=== PATIENT | female | born 2000 | race Caucasian/White ===

== ENCOUNTER 2024-09-02 19:41 | Inpatient (IN) ==
[2024-09-02 20:40] LABS: Basophils # (auto) 0.04 K/uL (0.00-0.20); Basophils % (auto) 0.2 %; Eosinophils # (auto) 0.02 K/uL (0.00-0.50); Eosinophils % (auto) 0.1 %; Hematocrit (blood only) 43.7 % (37.0-47.0); Hemoglobin 15.3 g/dl (12.0-16.0); Immature Granulocytes # (auto) 0.05 K/uL (0.01-0.20); Immature Granulocytes % (auto) 0.3 %; Lymphocytes # (auto) 1.95 K/uL (1.20-3.40); Monocytes # (auto) 1.01 K/uL (0.11-0.59); Monocytes % (auto) 6.2 %; Neutrophils # (auto) 13.23 K/uL (1.40-6.50); Neutrophils % (auto) 81.2 %; Platelet Count 195 K/uL (130-400); RDW Coefficient of Variation 12.2 % (11.5-14.5); RDW Standard Deviation 45.1 fL (36.4-46.3); Red Blood Count 4.37 M/uL (4.20-5.40)
[2024-09-02 20:49] LABS: Acetaminophen 5 ug/ml (10-30); Salicylate < 3.0 mg/dl (3.0-30)
[2024-09-02 20:50] LABS: Albumin Globulin Ratio 1.4 (0.9-2); Albumin Level 4.2 gm/dl (3.4-5.0); BUN Creatinine Ratio 10.8 (10-20); Bilirubin,Total 0.4 mg/dl (0.2-1.0); Calcium 9.2 mg/dl (8.6-10.3); Creatinine Clr Calc Pharmacy 103.3 ml/min; Globulin 2.9 gm/dl (2.5-4.0); Potassium 3.7 mmol/L (3.5-5.1); Total Protein 7.1 gm/dl (6.0-8.3)
--- NOTE | 2024-09-02 20:58 | Emergency Department Note ---
Impression & Plan Suicidal ideation, Depression ED Provider Note HISTORY OF PRESENT ILLNESS: Patient is a 24-year-old female presenting with depression and suicidal ideation. Patient reports her depression has been worsening over the last few weeks. States that she is "does not want to live anymore." She does not have a plan to kill herself, as she states "my son and I need to live for him." She reports that "all I wanted do is sleep." She reports lack of energy to do anything and anhedonia. With an outpatient therapist, but the therapist is unable to prescribe her any medications. She reports she has not been on any antidepressant or psychiatric medications for a number of years. She reports that "I need help." Denies any homicidal ideation. Denies any auditory visual hallucinations. Denies any specific triggers over the last few weeks to make her depression worse. Reports that "I have just reached my limit and I need help." Patient denies ever having an inpatient psychiatric admission before. ROS: as above PHYSICAL EXAM: Constitutional: Patient appears in no acute distress. HENT: Head: Normocephalic and atraumatic. Eyes: EOMI, PERRL Mouth/Throat: Mucous membranes moist. Neck: Trachea midline. Neck supple. Cardiovascular: RRR, No murmurs, rubs or gallops. Intact distal pulses. Pulmonary/Chest: No respiratory distress. Breath sounds clear and equal bilaterally. No wheezes or rales. Abdominal: Abdomen soft, no tenderness, rebound or guarding. Musculoskeletal: No edema, tenderness or deformity noted. Skin: Warm and dry. No rash, erythema, pallor or cyanosis Psychiatric: Tearful Neurological: Alert and keenly responsive. CN II-XII grossly intact, moving all extremities equally and fully. MDM: - Vitals signs showed tachycardia - History obtained via patient. History as above. - Chronic conditions affecting care: bipolar disorder; depression - Differential diagnoses include, but are not limited to: depression; UTI; alcohol intoxication; drug intoxication - External medical records reviewed. - Laboratory workup interpreted by myself showed leukocytosis (WBC 16.30); normal electrolytes; slightly elevated glucose (122); normal TSH; negative alcohol/acetaminophen/salicylate levels - COVID negative - UA negative for infection - Patient medically cleared. Patient seen in conjunction with behavioral health protective services case worker. She is a voluntary 201 admission for an inpatient psychiatric facility. Bed search in process with referrals being sent. - Prior to disposition, care of patient was checked out to Dr. Longoria following a discussion of the patient's course. ASSESSMENT AND PLAN: Diagnosis: suicidal ideation; depression Past Med/Surg History Problem List (Updated 09/02/24 @ 22:15 by Katerina Dubon MD) Depression (Acute) Suicidal ideation (Acute) Social History (System 02/03/20 @ 11:56 by Lis Centeno) Smoking Status: Current every day smoker Tobacco Type: Cigarettes Preferred Language: Icelandic Feels Safe at Home: Yes Gender Identity: Female Allergies Allergies Allergy/AdvReac Type Severity Reaction Status Date / Time cranberry Allergy Severe Hives Unverified 03/08/20 20:55 latex Allergy Rash Unverified 03/08/20 20:55 nickel Allergy Swelling Unverified 03/08/20 20:55 of Lip/Tongue/Throat Home Meds Home Medications Medication Instructions Recorded Confirmed PNV 153-FA 400 mcg-om3 35 mg-dha 2 tab PO DAILY 03/08/20 03/08/20 25 mg-epa 5 mg-fish oil chew tablet ( Gummies) Results & Data (ED) Vital Signs Vital Signs - 24 hr 09/02/24 19:45 09/02/24 22:00 Temperature 36.5 C Temperature Source Temporal Artery Scan Pulse Rate 98 H Pulse Rate [Finger] 88 Pulse Rhythm Regular Pulse Strength Normal Respiratory Rate 17 16 Respiratory Effort / Characteristics Non-Labored Spontaneous Non-Labored Spontaneous Respiratory Depth Normal Normal Respiratory Pattern Regular Regular Blood Pressure 122/81 Blood Pressure [Left Arm] 111/76 Blood Pressure Mean 94 Blood Pressure Mean [Left Arm] 87 Blood Pressure Position Sitting Pulse Oximetry 99 97 Oxygen Delivery Method Room Air Room Air Sepsis Recent Fever Within 48 Hours No Sepsis New/Unexplained Change in Mental Status N/A Sepsis Action Taken by Nursing No Action Required Laboratory Data 09/02/24 20:14 09/02/24 20:14 Lab Results 09/02/24 09/02/24 09/02/24 Range/Units 20:10 20:14 20:15 WBC 16.30 H (4.8-10.8) K/ul RBC 4.37 (4.20-5.40) M/uL Hgb 15.3 (12.0-16.0) g/dl Hct 43.7 (37.0-47.0) % MCV 100.0 (80.0-100.0) fL MCH 35.0 H (25.0-34.0) pg MCHC 35.0 (32.0-36.0) g/dL RDW Std Deviation 45.1 (36.4-46.3) fL RDW Coeff of Maria Ines 12.2 (11.5-14.5) % Plt Count 195 (130-400) K/uL MPV 11.0 (9.4-12.4) fL Immature Gran % (Auto) 0.3 % Neut % (Auto) 81.2 % Lymph % (Auto) 12.0 % Scurry % (Auto) 6.2 % Eos % (Auto) 0.1 % Baso % (Auto) 0.2 % Neut # (Auto) 13.23 H (1.40-6.50) K/uL Lymph # (Auto) 1.95 (1.20-3.40) K/uL Scurry # (Auto) 1.01 H (0.11-0.59) K/uL Eos # (Auto) 0.02 (0.00-0.50) K/uL Baso # (Auto) 0.04 (0.00-0.20) K/uL Immature Gran # (Auto) 0.05 (0.01-0.20) K/uL Sodium 138 (136-145) mmol/L Potassium 3.7 (3.5-5.1) mmol/L Chloride 104 (98-107) mmol/L Carbon Dioxide 28 (21-32) mmol/L Anion Gap 6 (3-11) BUN 9 (6-23) mg/dl Creatinine 0.83 (0.6-1.2) mg/dl Est Cr Clr Drug Dosing 103.3 ml/min eGFR 99.65 BUN/Creatinine Ratio 10.8 (10-20) Glucose 122 H (70-99(Fasting)) mg/dl Calcium 9.2 (8.6-10.3) mg/dl Total Bilirubin 0.4 (0.2-1.0) mg/dl AST 18 (13-39) U/L ALT 12 (7-52) U/L Alkaline Phosphatase 77 (34-104) U/L Total Protein 7.1 (6.0-8.3) gm/dl Albumin 4.2 (3.4-5.0) gm/dl Globulin 2.9 (2.5-4.0) gm/dl Albumin/Globulin Ratio 1.4 (0.9-2) TSH 1.563 (0.300-4.500) uIu/ml HCG, Qual Negative (Negative) Urine Color Urine Appearance (Clear) Urine pH (4.5-7.5) Ur Specific Sandwich (1.000-1.030) Urine Protein (Negative) Urine Glucose (UA) (Negative) Urine Ketones (Negative) Urine Blood (Negative) Urine Nitrite (Negative) Urine Bilirubin (Negative) Urine Urobilinogen (Negative) Ur Leukocyte Esterase (Negative) Salicylates < 3.0 L (3.0-30) mg/dl Acetaminophen 5 L (10-30) ug/ml Ethyl Alcohol mg/dL < 10.0 (<10.0) mg/dl SARS-CoV-2, RNA, NAAT NEGATIVE (NEGATIVE) 09/02/24 Range/Units 20:48 WBC (4.8-10.8) K/ul RBC (4.20-5.40) M/uL Hgb (12.0-16.0) g/dl Hct (37.0-47.0) % MCV (80.0-100.0) fL MCH (25.0-34.0) pg MCHC (32.0-36.0) g/dL RDW Std Deviation (36.4-46.3) fL RDW Coeff of Maria Ines (11.5-14.5) % Plt Count (130-400) K/uL MPV (9.4-12.4) fL Immature Gran % (Auto) % Neut % (Auto) % Lymph % (Auto) % Scurry % (Auto) % Eos % (Auto) % Baso % (Auto) % Neut # (Auto) (1.40-6.50) K/uL Lymph # (Auto) (1.20-3.40) K/uL Scurry # (Auto) (0.11-0.59) K/uL Eos # (Auto) (0.00-0.50) K/uL Baso # (Auto) (0.00-0.20) K/uL Immature Gran # (Auto) (0.01-0.20) K/uL Sodium (136-145) mmol/L Potassium (3.5-5.1) mmol/L Chloride (98-107) mmol/L Carbon Dioxide (21-32) mmol/L Anion Gap (3-11) BUN (6-23) mg/dl Creatinine (0.6-1.2) mg/dl Est Cr Clr Drug Dosing ml/min eGFR BUN/Creatinine Ratio (10-20) Glucose (70-99(Fasting)) mg/dl Calcium (8.6-10.3) mg/dl Total Bilirubin (0.2-1.0) mg/dl AST (13-39) U/L ALT (7-52) U/L Alkaline Phosphatase (34-104) U/L Total Protein (6.0-8.3) gm/dl Albumin (3.4-5.0) gm/dl Globulin (2.5-4.0) gm/dl Albumin/Globulin Ratio (0.9-2) TSH (0.300-4.500) uIu/ml HCG, Qual (Negative) Urine Color Yellow Urine Appearance Clear (Clear) Urine pH 7.0 (4.5-7.5) Ur Specific Sandwich 1.008 (1.000-1.030) Urine Protein Negative (Negative) Urine Glucose (UA) Negative (Negative) Urine Ketones Negative (Negative) Urine Blood Negative (Negative) Urine Nitrite Negative (Negative) Urine Bilirubin Negative (Negative) Urine Urobilinogen Negative (Negative) Ur Leukocyte Esterase Negative (Negative) Salicylates (3.0-30) mg/dl Acetaminophen (10-30) ug/ml Ethyl Alcohol mg/dL (<10.0) mg/dl SARS-CoV-2, RNA, NAAT (NEGATIVE) Discharge Plan Visit Data Chief Complaint: Mental Health Evaluation Stated Complaint: MENTAL HEALTH EVALUATION ED Provider: Valerie Longoria Discharge Problem: Suicidal ideation, Depression Patient Disposition: Still a Patient Forms Stand Alone Forms: My [facility] Get[employer]ippy, Suicide Prevention Resources Prescriptions Prescriptions: No Action Gummies 400 mcg-35 mg- 25 mg-5 mg Tablet,Chewable 2 tab PO DAILY Referrals Referrals: Rock Porras D.O. [Primary Care Provider] -
[2024-09-02 21:04] LABS: Thyroid Stimulating Hormone 1.563 uIu/ml (0.300-4.500)
[2024-09-02 21:06] LABS: Appearance Urine Clear (Clear); Bilirubin Urine Negative (Negative); Blood Urine Negative (Negative); Color Urine Yellow; Glucose Urine UA Negative (Negative); Ketones Urine Negative (Negative); Leukocyte Esterase Urine Negative (Negative); Nitrite Urine Negative (Negative); Protein Urine Negative (Negative); Specific Gravity Urine 1.008 (1.000-1.030); Urobilinogen Urine Negative (Negative)
[2024-09-02 21:34] LABS: Pregnancy Test, Serum Negative (Negative)
[2024-09-02 22:17] LABS: Amphetamines+Metham, Urine Neg (Neg); Barbiturates, Urine Neg (Neg); Benzodiazepine, Urine Neg (Neg); Cocaine, Urine Neg (Neg); Fentanyl, Urine Neg (Neg); MDMA (Ecstacy), Urine Neg (Neg); Marijuana, Urine Pos (Neg); Methadone, Urine Neg (Neg); Opiate, Urine Neg (Neg); Phencyclidine, Urine Neg (Neg)
--- NOTE | 2024-09-02 22:42 | Emergency Department Note ---
ED Visit Note I received this patient in signout at the change of shift from Dr. Dubon pending mental health evaluation by [facility] There was concern over an elevated WBC. Chest x-ray is clear. Patient's records were reviewed and she did have a mildly elevated WBC in 2019. I suspect the patient's leukocytosis is related to stress and marijuana use. Urinalysis is clear. Patient was accepted to [facility] for admission and further management. .
[2024-09-03 01:13] LABS: Adenovirus PCR Not Detected (NotDetected); Bordetella parapertussis PCR Not Detected (NotDetected); Bordetella pertussis PCR Not Detected (NotDetected); Chlamydia pneumoniae PCR Not Detected (NotDetected); Coronavirus 229E PCR Not Detected (NotDetected); Coronavirus CoV-2 (COVID19)PCR Not Detected (NotDetected); Coronavirus HKU1 PCR Not Detected (NotDetected); Coronavirus NL63 PCR Not Detected (NotDetected); Coronavirus OC43PCR Not Detected (NotDetected); Human Metapneumovirus PCR Not Detected (NotDetected); Influenza A PCR Not Detected (NotDetected); Influenza B PCR Not Detected (NotDetected); Mycoplasma pneumoniae PCR Not Detected (NotDetected); Parainfluenza Virus 1 PCR Not Detected (NotDetected); Parainfluenza Virus 2 PCR Not Detected (NotDetected); Parainfluenza Virus 3 PCR Not Detected (NotDetected); Parainfluenza Virus 4 PCR Not Detected (NotDetected); Respiratory Syncytial VirusPCR Not Detected (NotDetected); Rhinovirus/Enterovirus PCR Not Detected (NotDetected)
[2024-09-03] MEDS ORDERED: NICOTINE POLACRILEX 2 MG GUM MT PRN (01:18)
[2024-09-03] MEDS: NICOTINE POLACRILEX 2 MG GUM MT ONE (01:31)
--- NOTE | 2024-09-03 02:12 | XRay Report ---
EXAM: XR chest 1V portable CLINICAL HISTORY: ELEVATED WBC PT SHIELDED. TECHNIQUE: An X-ray image of the chest is obtained using an AP projection. COMPARISON: None. FINDINGS: Pulmonary Parenchyma: Lungs are clear bilaterally. No evidence of consolidation, collapse, or focal opacities. No pulmonary nodules are identified. No evidence of pleural effusion or pleural thickening. Heart and Mediastinum: Heart size and shape are normal. No mediastinal widening or masses. No hilar or mediastinal lymphadenopathy. Bony Thorax: The bony thorax appears intact without fractures or deformities. Soft Tissues: Soft tissues overlying the chest wall are unremarkable. IMPRESSION: Normal chest X-ray. No acute cardiopulmonary abnormalities are identified. Electronically signed by Jorge Rhodes 09-03-2024 02:11 AM
[2024-09-03] MEDS: NICOTINE 14 MG/24 HR PATCH TD STA (02:13)
[2024-09-03] MEDS ORDERED: BISMUTH SUBSALICYLATE 262 MG CHEW PO PRN (02:22)
[2024-09-03] MEDS ORDERED: MAGNESIUM HYDROXIDE SUSP 30 ML UDC PO PRN (02:22)
[2024-09-03] MEDS ORDERED: SODIUM CHLORIDE 0.65% NA SOLN 45 ML (OCEAN) PRN (02:22)
[2024-09-03] MEDS ORDERED: hydrOXYzine HCl 25 MG TAB PO PRN ×2 (02:22)
[2024-09-03] MEDS ORDERED: ALUMINUM/MAGNESIUM SUSP 30 ML UDC PO PRN (02:22)
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
[2024-09-03] MEDS: NICOTINE 21 MG/24 HR TDSY TD SCH (12:39)
[2024-09-03] MEDS: SUCRALFATE 1 GM/10 ML UDC PO STA (18:05)
[2024-09-03] MEDS: SUCRALFATE 1 GM/10 ML UDC PO SCH (21:33)
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
[2024-09-04] MEDS: NICOTINE POLACRILEX 2 MG GUM MT PRN (21:21)
[2024-09-04] MEDS ORDERED: busPIRone 5 MG TAB PO PRN (21:34)
[2024-09-04] MEDS: GABAPENTIN 100 MG CAP PO ONE (23:46)
[2024-09-05] MEDS: busPIRone 5 MG TAB PO SCH (08:54)
[2024-09-05] MEDS: SERTRALINE HCL 50 MG TABLET PO SCH (08:54)
[2024-09-05] MEDS: ONDANSETRON 4 MG OD TAB PO PRN (11:11)
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
[2024-09-05] MEDS: ACETAMINOPHEN 325 MG TAB PO PRN (23:00)
[2024-09-06] MEDS: lamoTRIgine 25 MG TAB PO SCH (08:08)
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
[2024-09-06 13:31] LABS: Marijuana Quant, GCMS Urine 160 ng/mL (<5)
== END 2024-09-06 14:30 | disposition home or self-care (01) | DRG 881 ==
LOC: ED 19:41 → 3S 09-03 01:56
DX: F12.20 Cannabis dependence, uncomplicated; F32.A Depression, unspecified; F17.210 Nicotine dependence, cigarettes, uncomplicated; R45.851 Suicidal ideations; F60.3 Borderline personality disorder; F43.10 Post-traumatic stress disorder, unspecified; Z91.419 Personal history of unspecified adult abuse; Z63.79 Other stressful life events affecting family and household; F41.1 Generalized anxiety disorder; Z91.040 Latex allergy status